=== PATIENT | male | born 1990 | race Two or more races ===

== ENCOUNTER 2018-05-02 05:57 | Emergency (ER) | payer SELFPAY ==
[~2018-05-02] VITALS: Ht 182.9 cm; Wt 95.0 kg
[2018-05-02] MEDS ORDERED: SODIUM CHLORIDE 0.9% 1,000 ML IV ONE (07:37)
[2018-05-02 09:27] LABS: *AMPHETAMINES SCREEN URINE NEGATIVE (NEGATIVE); *BARBITURATES SCREEN URINE NEGATIVE (NEGATIVE); *BENZODIAZEPINES SCREEN URINE NEGATIVE (NEGATIVE)
[2018-05-02 09:28] LABS: *COCAINE SCREEN URINE NEGATIVE (NEGATIVE); CANNABINOID URINE SCREEN PRESUMTIVE POSITIVE (NEGATIVE); METHADONE URINE SCREEN NEGATIVE (NEGATIVE); OPIATES URINE SCREEN NEGATIVE (NEGATIVE); PHENCYCLIDINE URINE SCREEN NEGATIVE (NEGATIVE)
[2018-05-02 09:30] VITALS: BP 110/51
== END 2018-05-02 10:08 | disposition home or self-care (01) ==
LOC: ER 10:05
DX: F12.10 Cannabis abuse, uncomplicated (principal)
CPT/HCPCS: 80305; 99283; J7030